=== PATIENT | female | born 1965 | race Caucasian/White ===

== ENCOUNTER 2019-08-24 22:52 | Emergency (ER) | payer MEDICARE ==
[~2019-08-24] VITALS: Ht 165 cm; Wt 73.5 kg
[~2019-08-24 22:52] MED LIST: ALPR1T PO
--- OUTSIDE RECORDS SUMMARY | 2019-08-24 22:57 | XMS REPORT | Continuity of Care Document ---
Author Organization Unknown Address Unknown Phone Unavailable Allergies Active Description Code Type Severity Reaction Onset Reported/Identified Relationship to Patient Clinical Status Yes CIPROFLOXACIN 44391 DRUG INGREDI N/A N/A 11/26/2018 Yes CODEINE 21735 DRUG INGREDI N/A N/A 11/26/2018 Yes CORTISONE 11256 DRUG INGREDI N/A N/A 11/26/2018 Yes DIPHENHYDRAMINE 18187 DRUG INGRED I N/A N/A 11/26/2018 Yes SULFA ANTIBIOTICS 34 Drug Class N/A N/A 11/26/2018 Yes TIOTROPIUM BROMIDE MONOHYDRATE 30187 DRUG N/A N/A 11/26/2018 Medications There is no data. Problems Date Dx Coded Attending Type Code Diagnosis Diagnosed By 11/26/2018 Malika AL R07.9 Chest pain, unspecified 11/26/2018 Malika AL I20.0 Unstable angina 11/26/2018 Malika AL W R06.09 Other forms of dyspnea 11/26/2018 Malika AL W R06.09 Other forms of dyspnea 11/26/2018 Malika AL W R00.2 Palpitations 11/26/2018 Malika AL W R00.2 Palpitations 11/26/2018 Malika AL W I10 Essential (primary) hypertension 11/26/2018 Malika AL W I10 Essential (primary) hypertension 11/26/2018 Malika AL W E78.00 Pure hypercholesterolemia, unspecified 11/26/2018 Malika AL W E78.00 Pure hypercholesterolemia, unspecified 11/26/2018 Malika AL J45.40 Moderate persistent asthma, uncomplicated 11/26/2018 Malika AL J44.9 Chronic obstructive pulmonary disease, unspecified 11/26/2018 Malika AL J44.9 Chronic obstructive pulmonary disease, unspecified 11/26/2018 Malika AL W Z82.49 Family history of ischemic heart disease and other diseases of the circulatory system 12/25/2018 Man BlankSandee Weiss E78. 00 PURE HYPERCHOLESTEROLEMIA, UNSPECIFIED 12/25/2018 Man BlankSandee Weiss F17. 210 NICOTINE DEPENDENCE, CIGARETTES, UNCOMPLICATED 12/25/2018 Abhay Man NamSandee Weiss I10 ESSENTIAL (PRIMARY) HYPERTENSION 12/25/2018 Abhay Emeterio. W J44. 9 CHRONIC OBSTRUCTIVE PULMONARY DISEASE, UNSPECIFIED 12/25/2018 Man Blank Carol Weiss R07. 9 CHEST PAIN, UNSPECIFIED 12/25/2018 Man Blank Carol Weiss Z79. 899 OTHER MCC (CURRENT) DRUG THERAPY 12/25/2018 Man Blank Carol Weiss E78. 00 PURE HYPERCHOLESTEROLEMIA, UNSPECIFIED 12/25/2018 Man BlankSandee Weiss F17. 210 NICOTINE DEPENDENCE, CIGARETTES, UNCOMPLICATED 12/25/2018 AbhayMan I10 ESSENTIAL (PRIMARY) HYPERTENSION 12/25/2018 Abhay Emeterio. W J44. 9 CHRONIC OBSTRUCTIVE PULMONARY DISEASE, UNSPECIFIED 12/25/2018 Man Blank Carol Weiss R07. 9 CHEST PAIN, UNSPECIFIED 12/25/2018 Man Blank Carol Weiss Z79. 899 OTHER M[facility] (CURRENT) DRUG THERAPY 12/25/2018 Abhay Man NamSandee Weiss Z82. 49 FAMILY HX OF ISCHEM HEART DIS AND OTH DIS OF THE C Procedures There is no data. Results Test Result Range CBC Without Differential - 12/23/18 13:1 0 HEMOGLOBIN 12.9 gm/dL 12.0-15.0 WBC 9.2 thou/uL 4.0-11.0 RBC 4.05 mil/uL 4.20-5.00 MCV 91.2 fL 80.0-100.0 MCH 31.7 pg 26.0-34.0 MCHC 34.8 g/dL 28.0-37.0 RDW 13.9 % 10.5-14.5 HEMATOCRIT 37.0 % 37.0-47.0 PLATELET COUNT* 225 thou/uL 150-400 MPV 9.9 fl. 7.2-11.1 BASIC METABOLIC PANEL - 12/23/18 13:10 SODIUM 139 mmol/L 136-145 POTASSIUM 3.9 mmol/L 3.5-5.1 CHLORIDE 104 mmol/L 98-107 CO2 28 mmol/L 21-32 ANION GAP 7 mmol/L 7-16 BUN 5 mg/dL 7-18 CREATININE 0.9 mg/dL 0.6-1.3 GLUCOSE 121 mg/dL 70-99 CALCIUM 9.6 mg/dL 8.5-10.1 Est Glomerular Filtration Rate 65 SeeTable NRG LIPID PROFILE - 12/23/18 13:10 SERUM ASSESSMENT Clear NRG CHOLESTEROL 189 mg/dL <200 TRIGLYCERIDE 178 mg/dL <150 HDL CHOLESTEROL 41 mg/dL >40 LDL CHOLESTEROL 113 mg/dL <100 VLDL 36 mg/dL <40 TC:HDL 4.6 Ratio Not establshd PROTIME* - 12/23/18 13:10 PROTIME 10.3 Seconds 9.20-11.50 INR 1.0 NRG APTT - 12/23/18 13:10 APTT 27.6 Seconds 25.0-31.3 Encounters ACCT No. Visit Date/Time Discharge Status Pt. Type Provider Facility Loc./Unit Complaint [id number] 01/20/2019 09:40:47 2018 10:22:54 DIS Outpatient [facility] CARD Chest Pain [id number] 12/22/2018 10:01:38 2018 12:03:02 DIS Outpatient [facility] CARD Chest Pain [id number] 12/22/2018 10:55:26 2018 10:55:42 DIS Outpatient [facility] CARD [id number] 12/23/2018 12:19:00 12/23/2018 23:5 9:59 [facility]ABNL STRE SS TEST [id number] 08/24/2019 14:00:[address] Out[address] [facility] RAD MASS OF LEFT LUNG
--- NOTE | 2019-08-24 23:24 | ED Psychosocial ---
General Chief Complaint: Psych/Social Disorder Stated Complaint: PANIC ATTACK Nursing Triage Note: Pt ambulates to [facility] with c/o panic attack since 1400 today, ever since they got a CT scan d/t being claustrophobic. Pt has Hx of anxiety and reports having xanax they take prn and states they are out of prescription so wasn't able to get anxiety under control. Pt does not appear in distress on arrival. Source: patient Exam Limitations: no limitations History of Present Illness Date Seen by Provider: Aug 24, 2019 Time Seen by Provider: 23:21 Initial Comments To ER with a panic attack since 2 PM today ever since having a CT scan. She relates this anxiety to claustrophobia. She was formerly on Xanax 1 mg once or twice a day but her primary care provider quit prescribing them. Timing/Duration: constant Severity: moderate Associated Symptoms: anxiety Allergies and Home Medications Allergies Coded Allergies: No Known Drug Allergies (Unverified , 08/24/19) Patient Home Medication List Home Medication List Reviewed: Yes Review of Systems Constitutional: see HPI EENTM: see HPI Respiratory: no symptoms reported Cardiovascular: no symptoms reported Genitourinary: no symptoms reported Musculoskeletal: see HPI Skin: no symptoms reported Psychiatric/Neurological: See HPI, Anxiety Past Dnsssti-Gyowmp-Shwjfm Hx Patient Social History Alcohol Use: Occasionally Uses Recreational Drug Use: No Smoking Status: Current Everyday Smoker Type Used: Cigarettes 2nd Hand Smoke Exposure: Yes Recent Foreign Travel: No Contact w/Someone Who Travel: No Recent Infectious Disease Expo: No Recent Hopitalizations: No (cardiac cath 12/2018- no intervention) Seasonal Allergies Seasonal Allergies: Yes Past Medical History Surgeries: Yes (tumor removal right side 2005, stretched esophagus in 2018) Gallbladder Respiratory: Yes Asthma, COPD Cardiac: Yes High Cholesterol, Hypertension Neurological: No Genitourinary: No Gastrointestinal: Yes Gastroesophageal Reflux, Hiatal Hernia Musculoskeletal: No Endocrine: No HEENT: No Cancer: No Psychosocial: Yes Personality Disorder Integumentary: No Blood Disorders: No Physical Exam Vital Signs - First Documented 08/24/19 23:05 Temp 36.5 Pulse 72 Resp 20 B/P (MAP) 148/82 (104) Pulse Ox 97 O2 Delivery Room Air Capillary Refill : Less Than 3 Seconds Height, Weight, BMI Height: '" Weight: lbs. oz. kg; 26.00 BMI Method: General Appearance: WD/WN, no apparent distress HEENT: PERRL/EOMI, normal ENT inspection Respiratory: no respiratory distress, no accessory muscle use Gastrointestinal: normal bowel sounds, soft Extremities: normal range of motion, non-tender Neurologic/Psychiatric: alert, normal mood/affect, oriented x 3 Appearance/Memory: appropriate appearance, appropriate insight Behavior/Eye Contact: cooperative, good eye contact Thoughts/Hallucinations: normal thought pattern, no apparent hallucination Skin: normal color, warm/dry Progress/Results/Core Measures Results/Orders My Orders Orders - JITENDRA MOREL APRN Clonazepam Tablet (Klonopin Tablet) (08/24/19 23:30) Vital Signs/I&O 08/24/19 23:05 Temp 36.5 Pulse 72 Resp 20 B/P (MAP) 148/82 (104) Pulse Ox 97 O2 Delivery Room Air Blood Pressure Mean: 104 Departure Impression Primary Impression: Anxiety Additional Impression: Benzodiazepine withdrawal Disposition: 01 HOME, SELF-CARE Condition: Stable Departure-Patient Inst. Decision time for Depature: 23:23 Referrals: JOSEPH HUBBARD (PCP/Family) Primary Care Physician Patient Instructions: Panic Disorder (DC) Add. Discharge Instructions: 1. Return to ER for any concerns 2. Follow-up with mental health as scheduled. All discharge instructions reviewed with patient and/or family. Voiced understanding. JITENDRA MOREL APRN Aug 24, 2019 23:23
[2019-08-24] MEDS ORDERED: clonazePAM 1 MG (KlonoPIN) TAB PO ONE (23:30)
[2019-08-25 00:49] VITALS: BP 145/83
== END 2019-08-25 00:47 | disposition home or self-care (01) ==
LOC: EDUNIT# 22:52 → ER 22:53 → MERGE 22:53 → ER 08-25 00:47
DX: F41.0 Panic disorder [episodic paroxysmal anxiety] (principal); F13.239 Sedative, hypnotic or anxiolytic dependence with withdrawal, unspecified; F17.210 Nicotine dependence, cigarettes, uncomplicated; Z95.9 Presence of cardiac and vascular implant and graft, unspecified
CPT/HCPCS: 99283

== ENCOUNTER → 2020-05-13 | Outpatient (CLI) | payer MEDICARE | LOC: RAD 09:49 | PROVIDERS: ATTEND Physician Assistant | DX: Z12.31 Encounter for screening mammogram for malignant neoplasm of breast (principal) | CPT/HCPCS: 77063; 77067 ==

== ENCOUNTER → 2020-07-05 | Outpatient (CLI) | payer MEDICARE ==
--- NOTE | 2020-07-05 12:40 | Diagnostic Imaging Report ---
INDICATION: Postmenopausal state. COMPARISON: None available FINDINGS: AP Spine L1-L4: [BMD (g/cm2): 1.249] [T-Score: 0.4] [Z-Score: 0.7] [BMD Previous: NA] [BMD % Change: NA] LT Hip Neck: [BMD (g/cm2): 1.199] [T-Score: 1.2] [Z-Score: 1.8] LT Hip Total: [BMD (g/cm2):1.253] [T-Score:1.9] [Z-Score: 2.2] [BMD Previous: NA] [BMD % Change: NA] RT Hip Neck: [BMD (g/cm2):1.173] [T-Score:1.0] [Z-Score:1.6] RT Hip Total: [BMD (g/cm2):1.206] [T-score:1.6] [Z-Score:1.9] [BMD Previous:NA] [BMD % Change:NA] *Indicates significant change from prior examination based on 95% confidence level. World Health Organization criteria for BMD interpretation classify patients as Normal (T-score at or above -1.0), Osteopenic (T-score between -1.0 and -2.5) or Osteoporotic (T-score at or below -2.5). LIMITATIONS AND MODIFICATION: None. IMPRESSION: 1. Normal bone mineral density. 2. Baseline examination. 3. See below National Osteoporosis Foundation guidelines on when to potentially initiate pharmacologic therapy. Based on the National Osteoporosis Foundation Guidelines, pharmacologic treatment should be initiated in any of the following, unless clinical conditions suggest otherwise: * Any patient with prior fragility fracture of the hip or vertebrae. A spine fracture indicates 5X risk for subsequent spine fracture and 2X risk for subsequent hip fracture. * Osteoporosis (T-score <-2.5). * Postmenopausal women and men age 50 and older with low bone mass/osteopenia (T-score between -1.0 and -2.5) by DXA and 10-year major osteoporotic fracture greater than 20% or a 10-year probability of hip fracture greater than 3%. These fracture risks are supplied above in the FRAX score, if applicable. * Clinician judgement and/or patient preferences may indicate treatment for people with 10-year fracture probabilities above or below these levels. Dictated by: Dictated on workstation # [id number]
== END ==
LOC: RAD 12:30
PROVIDERS: ATTEND Physician Assistant
DX: Z91.89 Other specified personal risk factors, not elsewhere classified (principal); Z78.0 Asymptomatic menopausal state
CPT/HCPCS: 77080

== ENCOUNTER → 2021-02-06 | Outpatient (CLI) | payer MEDICARE ==
--- NOTE | 2021-02-06 10:13 | Diagnostic Imaging Report ---
CLINICAL INDICATION: Patient with possible thyroid mass. EXAM: Ultrasound of the thyroid gland. COMPARISONS: None. FINDINGS: THYROID NODULES: There is a subtle 1.5 cm x 1.0 cm x 0.9 cm heterogeneous hypo-/isoechoic nodule involving the midportion left thyroid lobe which demonstrates peripheral and some central Doppler flow. This nodule is wider than it is tall. There are no central calcifications seen. THYROID GLAND: Besides the thyroid nodule, the thyroid gland has normal size, shape and echogenicity. The right lobe measures 4.3 cm x 1.5 cm x 1.3 cm and the left lobe measures 4.3 cm x 1.9 cm x 1.5 cm in their three dimensions. ISTHMUS: The isthmus is unremarkable and measures 1 mm in thickness. IMPRESSION: 1: There is a 1.5 cm subtle slightly heterogeneous nodule involving the mid left thyroid lobe. TI-RADS 3. 2: Otherwise, the remainder of the thyroid gland is unremarkable. Dictated by: Dictated on workstation # [id number]
== END ==
LOC: RAD 09:00
PROVIDERS: ATTEND Otolaryngology Otolaryngology/Facial Plastic Surgery
DX: E04.1 Nontoxic single thyroid nodule (principal)
CPT/HCPCS: 76536

== ENCOUNTER → 2021-02-15 | Outpatient (CLI) | payer MEDICARE ==
[~2021-02-15] VITALS: Ht 160 cm; Wt 74.0 kg
[~2021-02-15] MED LIST changes: +LIDOCAINE 1% INJ 20 ML 20 ML VIAL INJ ONE
--- NOTE | 2021-02-15 09:48 | Diagnostic Imaging Report ---
INDICATION: Left thyroid nodule. Patient presents for ultrasound-guided fine-needle aspiration. Patient brought to the procedure room, placed on the table in the supine position. Ultrasound imaging of the left neck was performed evaluating appropriate entry site. Left neck was then prepped and draped in usual sterile fashion. Small amount of 1% lidocaine was utilized for local anesthesia. Total of 4 passes were made into the left lobe of the thyroid utilizing 25-gauge needles and final aspiration technique. Single pass was made with a Rotex needle. Hemostasis was obtained using manual compression. Patient tolerated procedure well and left the department in stable condition. IMPRESSION: Successful ultrasound-guided fine-needle aspiration Rotex biopsy left lobe thyroid nodule. Pathology results are currently pending. Dictated by: Dictated on workstation # [id number]
== END ==
LOC: RAD 08:30
PROVIDERS: ATTEND Otolaryngology Otolaryngology/Facial Plastic Surgery
DX: E04.1 Nontoxic single thyroid nodule (principal)
CPT/HCPCS: 10005

== ENCOUNTER 2022-03-18 21:55 | Emergency (ER) | payer MEDICARE ==
[~2022-03-18] VITALS: Ht 160 cm; Wt 71.0 kg
[~2022-03-18 21:55] MED LIST changes: -LIDOCAINE 1% INJ 20 ML 20 ML VIAL INJ ONE
[2022-03-18 22:06] VITALS: BP 165/78
--- NOTE | 2022-03-18 22:22 | ED General ---
General Chief Complaint: General Problems/Pain Stated Complaint: POSS ALLERGIC REACTION TO NEW MEDS Source of Information: Patient Exam Limitations: No Limitations History of Present Illness Date Seen by Provider: Mar 18, 2022 Time Seen by Provider: 22:09 Initial Comments 57-year-old female presents with reports that she thinks she is having an allergic reaction to her medication. States she was started on Bactrim and Pyridium last for UTI. States she drank 2 Brewer and Cokes tonight, then read the package insert on the prescriptions which told her she was not supposed to drink with the medications. Patient states that she began to not feel well after this, she reports scratching in her throat and sweating. States she was also sweating yesterday. Denies itching, denies difficulty swallowing, denies throat tightening, denies lip or tongue swelling, denies trouble breathing. Denies abdominal pain/nausea vomiting, denies chest pain. Patient states that her blood pressure was also elevated, so she took her night medications and a hydroxyzine to help with her anxiety. Patient then realized that she actually took 2 hydroxyzines. Allergies and Home Medications Allergies Coded Allergies: diphenhydramine HCl (Verified Allergy, Intermediate, LIPS TURN BLUE, 04/17/11) varenicline tartrate (Verified Allergy, Mild, HIVES, 04/17/11) codeine (Verified Allergy, Unknown, 12/25/05) etodolac (Verified Allergy, Unknown, 12/25/05) ciprofloxacin (Verified Adverse Reaction, Unknown, 08/28/19) diphenhydramine (Verified Adverse Reaction, Unknown, 08/28/19) Uncoded Allergies: SYNTHETIC CODEINE (Allergy, Mild, RASH, 04/17/11) "ANTIHISTAMINE" (Allergy, Unknown, 12/25/05) Patient Home Medication List Home Medication List Reviewed: Yes Alprazolam (Xanax) 1 Mg Tablet, 1 TAB PO TID PRN, (Reported) Entered as Reported by: ERNESTINA SEARS on 04/17/11 5909 Review of Systems Review of Systems Constitutional: see HPI Past Kuxeflc-Rksnqy-Srmwoq Hx Patient Social History Tobacco Use?: No Use of E-Cig and/or Vaping dev: No Substance use?: No Alcohol Use?: No Pt feels they are or have been: No Seasonal Allergies Seasonal Allergies: Yes Past Medical History Surgeries: Yes (tumor removal right side 2006, stretched esophagus in 2018) Gallbladder Respiratory: Yes Asthma, COPD Cardiac: Yes High Cholesterol, Hypertension Neurological: No Genitourinary: No Gastrointestinal: Yes Gastroesophageal Reflux, Hiatal Hernia Musculoskeletal: No Endocrine: No HEENT: No Cancer: No Psychosocial: Yes Personality Disorder Integumentary: No Blood Disorders: No Physical Exam Vital Signs Vital Signs - First Documented 03/18/22 22:06 Temp 35.8 Pulse 87 Resp 20 B/P (MAP) 165/78 (107) Pulse Ox 97 O2 Delivery Room Air Capillary Refill : Height, Weight, BMI Height: 5'6.00" Weight: 132lbs. oz. 59.669631ii; 28.90 BMI Method: General Appearance: WD/WN, Anxious HEENT: Normal ENT Inspection, Pharynx Normal, Moist Mucous Membranes Neck: Normal Inspection, Supple Respiratory: Lungs Clear, Normal Breath Sounds, No Accessory Muscle Use, No Respiratory Distress Cardiovascular: No Edema, No Gallop, No JVD, No Murmur Extremity: Normal Inspection, Normal Range of Motion Neurologic/Psychiatric: Alert, Oriented x3, Other (Anxious) Skin: Normal Color, Warm/Dry Progress/Results/Core Measures Suspected Sepsis SIRS Temperature: Pulse: Respiratory Rate: Blood Pressure / Mean: Results/Orders My Orders Vital Signs/I&O 03/18/22 22:06 Temp 35.8 Pulse 87 Resp 20 B/P (MAP) 165/78 (107) Pulse Ox 97 O2 Delivery Room Air Capillary Refill : Progress Note : Time: 22:23 Progress Note Patient seen and evaluated, appears anxious, sitting in recliner. Based on exam and symptoms, patient is likely having anxiety or panic attack after reading that she was not supposed to drink with her medications. Do not think that this is an allergic reaction due to no itching, no difficulty swallowing, no swelling in the mouth, tongue or throat, and no difficulty breathing. Was going to give patient a second hydroxyzine, because she first thought that she only took 1 hydroxyzine. Patient then remembered that she had taken 2 hydroxyzines prior to coming to the ER. Patient given discharge instructions and return precautions. Departure Impression Primary Impression: Anxiety Disposition: 01 HOME, SELF-CARE Condition: Stable Departure-Patient Inst. Decision time for Depature: 22:23 Referrals: [facility] (PCP/Family) Primary Care Physician Patient Instructions: Allergic Reaction ED Add. Discharge Instructions: Return if you have swelling of your throat, difficulty swallowing, difficulty breathing, rash all over your body, or any other new, concerning, or worsening symptoms. Follow-up with your primary care provider. All discharge instructions reviewed with patient and/or family. Voiced understanding. HUY DENG APRN Mar 18, 2022 22:22
[2022-03-18] MEDS ORDERED: hydrOXYzine (VISTARIL/ATARAX) 25 MG capsule/tablet PO ONE (22:30)
== END 2022-03-18 22:27 | disposition home or self-care (01) ==
LOC: EDUNIT# 21:55 → ER 21:58
DX: F41.9 Anxiety disorder, unspecified (principal)
CPT/HCPCS: 99281

== ENCOUNTER 2022-04-13 20:08 | Emergency (ER) | payer MEDICARE ==
[~2022-04-13] VITALS: Ht 160 cm; Wt 71.2 kg
[2022-04-13] MEDS ORDERED: PANT40TA52 (20:21)
[2022-04-13] MEDS ORDERED: LOSA50TA63 (20:21)
[2022-04-13] MEDS ORDERED: METO-333 (20:21)
[2022-04-13] MEDS ORDERED: FLUO20CA48 (20:21)
[2022-04-13] MEDS ORDERED: MONT-40 (20:21)
--- NOTE | 2022-04-13 20:47 | Diagnostic Imaging Report ---
EXAM: Foot, right, 3 view INDICATION: Right foot pain. Trauma. COMPARISON: None. FINDINGS/ IMPRESSION: 1. Mildly displaced fractures through the base of the right 3rd and 4th metatarsals. 2. There may also be a fracture through the base of the right 2nd metatarsal. This is seen only on the AP view and may be artifactual. CT would be helpful for further evaluation. 3. No other finding suspicious for fracture. Dictated by: Dictated on workstation # [id number]
--- NOTE | 2022-04-13 21:39 | ED Lower Extremity ---
General Chief Complaint: Lower Extremity Stated Complaint: RT FOOT INJURY Nursing Triage Note: right mid medial foot pain after tripping approx. 1900. Source: patient, family Exam Limitations: no limitations History of Present Illness Date Seen by Provider: Apr 13, 2022 Time Seen by Provider: 21:20 Initial Comments Patient is a 57-year-old female who presents to the emergency department with a chief complaint of right foot pain, bruising and swelling. She was carrying her daughter granddaughter when she tripped over a curb and fell onto her right foot. She felt and heard a pop. She has been unable to bear weight since the time of the fall. She denies any complaints of injury to her knee, hip. No other areas of injury reported. She did not hit her head or have a loss of consciousness. She has not taken anything for the pain. She states her toes feel a little "numb". She points to the midportion of the dorsum of her foot as the source of her pain. Has never injured this foot in the past. She did have an episode of nausea and vomiting earlier due to the pain. All other review of systems reviewed and negative except as stated Onset: just prior to arrival Severity: moderate Pain/Injury Location: right foot Method of Injury: fell Modifying Factors: Improves With Immobilization; Worse With Movement Allergies and Home Medications Allergies Coded Allergies: diphenhydramine HCl (Verified Allergy, Intermediate, LIPS TURN BLUE, 04/17/11) varenicline tartrate (Verified Allergy, Mild, HIVES, 04/17/11) codeine (Verified Allergy, Unknown, 12/25/05) etodolac (Verified Allergy, Unknown, 12/25/05) ciprofloxacin (Verified Adverse Reaction, Unknown, 08/28/19) diphenhydramine (Verified Adverse Reaction, Unknown, 08/28/19) Uncoded Allergies: SYNTHETIC CODEINE (Allergy, Mild, RASH, 04/17/11) "ANTIHISTAMINE" (Allergy, Unknown, 12/25/05) Patient Home Medication List Home Medication List Reviewed: Yes Alprazolam (Xanax) 1 Mg Tablet, 1 TAB PO TID PRN, (Reported) Entered as Reported by: ERNESTINA SEARS on 04/17/111740 Fluoxetine HCl (Fluoxetine HCl) 20 Mg Capsule, (Reported) Entered as Reported by: TRINA REID on 04/13/222020 Last Action: New Order Losartan Potassium (Losartan Potassium) 50 Mg Tablet, (Reported) Entered as Reported by: TRINA REID on 04/13/222020 Last Action: New Order Metoprolol Tartrate (Metoprolol Tartrate) 25 Mg Tablet, (Reported) Entered as Reported by: TRINA REID on 04/13/222020 Last Action: New Order Montelukast Sodium (Montelukast Sodium) 10 Mg Tablet, (Reported) Entered as Reported by: TRINA REID on 04/13/222020 Last Action: New Order Pantoprazole Sodium (Pantoprazole Sodium) 40 Mg Tablet., (Reported) Entered as Reported by: TRINA REID on 04/13/222020 Last Action: New Order Review of Systems Constitutional: see HPI EENTM: no symptoms reported Respiratory: cough (occasional) Cardiovascular: no symptoms reported Gastrointestinal: nausea, vomiting Genitourinary: no symptoms reported Musculoskeletal: joint pain (right foot) Skin: no symptoms reported All Other Systems Reviewed Negative Unless Noted: Yes Past Sdhmjag-Xzditv-Ccgybu Hx Patient Social History Tobacco Use?: Yes Substance use?: No Alcohol Use?: Yes Alcohol Frequency: Once in a while Pt feels they are or have been: No Immunizations Up To Date First/Initial COVID19 Vaccinat: x2 Seasonal Allergies Seasonal Allergies: Yes Past Medical History Surgery/Hospitalization HX: left shoulder, cholecystectomy, heart cath no intervention, htn, gerd, copd Surgeries: Yes (tumor removal right side 2005, stretched esophagus in 2018) Gallbladder Respiratory: Yes Asthma, COPD Cardiac: Yes High Cholesterol, Hypertension Neurological: No Genitourinary: No Gastrointestinal: Yes Gastroesophageal Reflux, Hiatal Hernia Musculoskeletal: No Endocrine: No HEENT: No Cancer: No Psychosocial: Yes Personality Disorder Integumentary: No Blood Disorders: No Physical Exam Vital Signs Vital Signs - First Documented 04/13/22 20:13 Temp 36.6 Pulse 69 Resp 18 B/P (MAP) 154/64 (94) Pulse Ox 95 O2 Delivery Room Air Capillary Refill : Less Than 3 Seconds Height, Weight, BMI Height: 5'6.00" Weight: 132lbs. oz. [id number]; 27.00 BMI Method: General Appearance: WD/WN, no apparent distress HEENT: PERRL/EOMI Cardiovascular: regular rate, rhythm Respiratory: no respiratory distress, no accessory muscle use Hips: bilateral hip non-tender, bilateral hip normal inspection, bilateral hip normal range of motion, bilateral hip no evidence of injury Legs: bilateral leg non-tender, bilateral leg normal inspection, bilateral leg normal range of motion, bilateral leg no evidence of injury Knees: bilateral knee non-tender, bilateral knee normal inspection, bilateral knee normal range of motion, bilateral knee no evidence of injury Ankles: bilateral ankle non-tender, bilateral ankle normal inspection, bilateral ankle normal range of motion, bilateral ankle no evidence of injury Feet: right foot ecchymosis, right foot limited range of motion, right foot pain, right foot soft tissue tenderness, right foot swelling Neurologic/Tendon: normal sensation, normal motor functions, normal tendon functions, sensory deficit (toes feel "numb-sanjiv") Neurologic/Psychiatric: alert, normal mood/affect, oriented x 3 Skin: normal color, warm/dry, ecchymosis (dorsum right mid foot; tenderness to palpation) Progress/Results/Core Measures Results/Orders My Orders Orders - YOGI MONTOYA MD Foot, Right, 3 View (04/13/22 20:26) Ondansetron Oral Dissolve Tab (Zofran (04/13/22 21:45) Rx-Ondansetron Po (Rx-Zofran Po) (04/13/22 22:49) Vital Signs/I&O 04/13/22 20:13 Temp 36.6 Pulse 69 Resp 18 B/P (MAP) 154/64 (94) Pulse Ox 95 O2 Delivery Room Air Blood Pressure Mean: 94 Progress Progress Note : Time: 23:13 Progress Note Patient seen and evaluated by me, 57-year-old with right foot pain status post fall. Evaluation today includes physical exam and x-rays of the right foot. Exam is pertinent for swelling over the dorsum of the right foot with ecchymosis and tenderness to palpation. Neurovascularly intact with brisk 2+ dorsalis pedis pulse and posterior tibial pulse. Right ankle joint is stable. No tenderness along the tibial surface. Knee is normal. Differential diagnosis based on history and physical fracture of the midfoot, foot sprain. X-rays are reviewed and show mildly displaced fractures of the proximal third and fourth metatarsal as well as possible fracture of the second metatarsal. Patient is placed in a short leg posterior splint and given crutches. She is educated on nonweightbearing to the right lower extremity. She is referred to orthopedics, Dr. Alvares. She declines prescription pain medication and states that she will take naproxen. Instructions on naproxen dosing is given. I also gave her Zofran here in the department as well as a take-home pack and sent a prescription to her pharmacy. Patient is educated to keep the right foot elevated, ice packs and the splint in place. She verbalized understanding. All questions are sought and answered Departure Impression Primary Impression: Fracture of metatarsal of right foot, closed Qualified Codes: S92.331A - Displaced fracture of third metatarsal bone, right foot, initial encounter for closed fracture Additional Impressions: Metatarsal fracture Qualified Codes: S92.341A - Displaced fracture of fourth metatarsal bone, right foot, initial encounter for closed fracture Metatarsal bone fracture Qualified Codes: S92.324A - Nondisplaced fracture of second metatarsal bone, right foot, initial encounter for closed fracture Disposition: HOME, SELF-CARE Condition: Stable Departure-Patient Inst. Decision time for Depature: 21:46 Referrals: [facility] [place] (PCP/Family) Primary Care Physician RAN ALVARES MD Patient Instructions: Foot Fracture ED Add. Discharge Instructions: You need to keep the right All discharge instructions reviewed with patient and/or family. Voiced understanding. Scripts Ondansetron (Ondansetron Odt) 4 Mg Tab.rapdis 4 MG SL Q8H PRN for NAUSEA/VOMITING, #10 TAB Prov: YOGI MONTOYA MD 04/13/22 Copy Copies To 1: RAN ALVARES MD, KATHRYN M MD Apr 13, 2022 21:39
[2022-04-13] MEDS ORDERED: ONDANSETRON 4 MG (ZOFRAN) ORAL DISSOLVE TAB PO ONE (21:45)
[2022-04-13 22:45] VITALS: BP 129/79
[2022-04-13] MEDS ORDERED: RX-ONDANSETRON 4 MG ODT (ZOFRAN) PPK #4 ONE (22:49)
[2022-04-13] MEDS ORDERED: ONDA4TAB11 SL (23:15)
== END 2022-04-13 22:45 | disposition home or self-care (01) ==
LOC: EDUNIT# 20:08 → ER 20:10
DX: S92.331A Displaced fracture of third metatarsal bone, right foot, initial encounter for closed fracture (principal); S92.341A Displaced fracture of fourth metatarsal bone, right foot, initial encounter for closed fracture; S92.324A Nondisplaced fracture of second metatarsal bone, right foot, initial encounter for closed fracture; I10 Essential (primary) hypertension; W01.0XXA Fall on same level from slipping, tripping and stumbling without subsequent striking against object, initial encounter
CPT/HCPCS: 29515; 73630

== ENCOUNTER → 2022-04-18 | Outpatient (CLI) | payer MEDICARE ==
[~2022-04-18] MED LIST changes: +FLUO20CA48; +LOSA50TA63; +METO-333; +MONT-40; +ONDA4TAB11 SL; +PANT40TA52
== END ==
LOC: ORTHO 11:04
PROVIDERS: ATTEND Orthopaedic Surgery
DX: S92.324A Nondisplaced fracture of second metatarsal bone, right foot, initial encounter for closed fracture (principal); S92.334A Nondisplaced fracture of third metatarsal bone, right foot, initial encounter for closed fracture; S92.344A Nondisplaced fracture of fourth metatarsal bone, right foot, initial encounter for closed fracture; I10 Essential (primary) hypertension; X58.XXXA Exposure to other specified factors, initial encounter
CPT/HCPCS: 99203

== ENCOUNTER → 2022-05-17 | Outpatient (CLI) | payer MEDICARE ==
--- NOTE | 2022-05-17 13:19 | Diagnostic Imaging Report ---
EXAMINATION: Right foot radiographs, 3 views. COMPARISON: April 13, 2022. HISTORY: 57-year-old female, right foot pain. FINDINGS: There is mild degenerative type enthesopathy at the Achilles tendon insertion. There most likely is essentially nondisplaced fracture of the base of the second metatarsal. Further evaluation with dedicated CT right foot without contrast is recommended. There is no abnormal alignment of the metatarsal bases relative to their cuneiform and cuboid articulations. IMPRESSION: 1. Concern for a fracture of the second metatarsal base which can be seen with a Lisfranc type injury. Further evaluation with CT right foot without contrast is recommended. Dictated by: Dictated on workstation # [id number]
== END ==
LOC: ORTHO 08:59
PROVIDERS: ATTEND Orthopaedic Surgery
DX: S92.321A Displaced fracture of second metatarsal bone, right foot, initial encounter for closed fracture (principal); X58.XXXA Exposure to other specified factors, initial encounter
CPT/HCPCS: 73630; 99213

== ENCOUNTER → 2022-06-28 | Outpatient (CLI) | payer MEDICARE ==
--- NOTE | 2022-06-28 14:44 | Diagnostic Imaging Report ---
INDICATION: Fracture, follow-up. TECHNIQUE: 3 views of the right foot CORRELATION STUDY: 05/17/2022 FINDINGS: Previous imaging raise concern for fracture base of the 2nd metatarsal. There is what appears to be slight irregularity at this area may be reflective of a healed or incompletely healed fracture. No new bony abnormality. Alignment overall unchanged and anatomic. Degenerative changes through the tarsometatarsal articulations. Remaining osseous structures otherwise intact. Soft tissues appearing unremarkable. IMPRESSION: 1. Likely healing changes at the base of the 2nd metatarsal. If further assessment desired, CT imaging would be recommended. Dictated by: Dictated on workstation # [id number]
== END ==
LOC: ORTHO 08:37
PROVIDERS: ATTEND Orthopaedic Surgery
DX: S92.324D Nondisplaced fracture of second metatarsal bone, right foot, subsequent encounter for fracture with routine healing (principal); S92.334D Nondisplaced fracture of third metatarsal bone, right foot, subsequent encounter for fracture with routine healing; S92.344D Nondisplaced fracture of fourth metatarsal bone, right foot, subsequent encounter for fracture with routine healing; I10 Essential (primary) hypertension; X58.XXXD Exposure to other specified factors, subsequent encounter
CPT/HCPCS: 73630; 99213

== ENCOUNTER 2022-12-13 22:29 | Emergency (ER) | payer MEDICARE ==
[~2022-12-13] VITALS: Ht 160 cm; Wt 72.6 kg
--- NOTE | 2022-12-13 22:48 | ED GI ---
General Chief Complaint: Abdominal/GI Problems Stated Complaint: BLEACH EXPOSURE Nursing Triage Note: PT TO RM [facility] VIA [facility] FROM HOME W C/O N/V/D SX SHE WAS EXPOSED TO BLEACH WHILE CLEANING BATHROOM APPROX 3 HRS AGO. EMS ADMIN 4MG ZOFRAN IVP, PT REPORTS ZOFRAN RESOLVED N/V/D. EMS INITIATED 22G LEFT FA SL PATENT UPON ARRIVAL TO ED W 1L NS INFUSING. Source of Information: Patient Exam Limitations: No Limitations History of Present Illness Date Seen by Provider: Dec 13, 2022 Time Seen by Provider: 22:38 Initial Comments Patient is a 57-year-old female who presents to the emergency room by ambulance chief complaint this evening nausea, vomiting and diarrhea. Patient states ap proximately 3 hours prior to arrival she was cleaning her house in preparation for her granddaughters to come over tomorrow. She wiped her bathroom down with a bleach solution and then went and sat on her love seat. She had sudden onset of the urge to vomit and then continue to do so for approximately an hour to 2 hours. She states she became very sweaty and weak. She also had profuse explosive diarrhea. At no point did she have any chest pain or shortness of breath. No abdominal pain with this. Denies black or bloody stool or blood in her emesis. She states that she does have history of hiatal hernia. She has had previous cholecystectomy. She has had no fevers, chills, illness symptoms in recent days. She did receive IV Zofran prior to arrival. Her symptoms are controlled on arrival. Patient states she ate at home today - some taquitos and eggrolls. No recent sick contacts. Patient believes symptoms are related to bleach exposure as she is very sensitive to smells. Timing/Duration: 1-3 Hours Severity/Quality: Severe Associated Symptoms: Nausea/Vomiting, Other (diarrhea) Allergies and Home Medications Allergies Coded Allergies: diphenhydramine HCl (Verified Allergy, Intermediate, LIPS TURN BLUE, 04/17/11) varenicline tartrate (Verified Allergy, Mild, HIVES, 04/17/11) codeine (Verified Allergy, Unknown, 12/25/05) etodolac (Verified Allergy, Unknown, 12/25/05) ciprofloxacin (Verified Adverse Reaction, Unknown, 08/28/19) diphenhydramine (Verified Adverse Reaction, Unknown, 08/28/19) Uncoded Allergies: SYNTHETIC CODEINE (Allergy, Mild, RASH, 04/17/11) "ANTIHISTAMINE" (Allergy, Unknown, 12/25/05) Patient Home Medication List Home Medication List Reviewed: Yes Alprazolam (Xanax) 1 Mg Tablet, 1 TAB PO TID PRN, (Reported) Entered as Reported by: ERNESTINA SEARS on 04/17/11 1741 Fluoxetine HCl (Fluoxetine HCl) 20 Mg Capsule, (Reported) Entered as Reported by: TRINA REID on 04/13/222020 Losartan Potassium (Losartan Potassium) 50 Mg Tablet, (Reported) Entered as Reported by: TRINA REID on 04/13/222020 Metoprolol Tartrate (Metoprolol Tartrate) 25 Mg Tablet, (Reported) Entered as Reported by: TRINA REID on 04/13/222020 Montelukast Sodium (Montelukast Sodium) 10 Mg Tablet, (Reported) Entered as Reported by: TRINA REID on 04/13/222020 Ondansetron (Ondansetron Odt) 4 Mg Tab.rapdis, 4 MG SL Q8H PRN for NAUSEA/VOMITING Prescribed by: YOGI MONTOYA on 04/13/22 231 Pantoprazole Sodium (Pantoprazole Sodium) 40 Mg Tablet., (Reported) Entered as Reported by: TRINA REID on 04/13/222020 Review of Systems Review of Systems Constitutional: see HPI EENTM: No Symptoms Reported Respiratory: No Symptoms Reported Gastrointestinal: Diarrhea, Nausea, Vomiting Genitourinary: No Symptoms Reported Musculoskeletal: no symptoms reported Skin: no symptoms reported Psychiatric/Neurological: No Symptoms Reported All Other Systems Reviewed Negative Unless Noted: Yes Past Mubofke-Kpnxox-Voswho Hx Patient Social History Tobacco Use?: Yes Tobacco type used: Cigarettes Smoking Status: Current Everyday Smoker Use of E-Cig and/or Vaping dev: No Substance use?: No Alcohol Use?: Yes Alcohol Frequency: Rarely Immunizations Up To Date First/Initial COVID19 Vaccinat: x2 Seasonal Allergies Seasonal Allergies: Yes Past Medical History Surgery/Hospitalization HX: left shoulder, cholecystectomy, heart cath no intervention, htn, gerd, copd Surgeries: Yes (tumor removal right side 2006, stretched esophagus in 2018) Gallbladder Respiratory: Yes Asthma, COPD Cardiac: Yes High Cholesterol, Hypertension Neurological: No Genitourinary: No Gastrointestinal: Yes Gastroesophageal Reflux, Hiatal Hernia Musculoskeletal: No Endocrine: No HEENT: No Cancer: No Psychosocial: Yes Personality Disorder Integumentary: No Blood Disorders: No Physical Exam Vital Signs Vital Signs - First Documented 12/13/22 22:29 Temp 36.0 Pulse 67 Resp 18 B/P (MAP) 128/64 (85) Pulse Ox 98 O2 Delivery Room Air Capillary Refill : Less Than 3 Seconds Height/Weight/BMI Height: 5'6.00" Weight: 132lbs. oz. 59.405553ak; 28.00 BMI Method: General Appearance: WD/WN, no apparent distress HEENT: PERRL/EOMI Neck: normal inspection Respiratory: lungs clear, normal breath sounds, no respiratory distress, no accessory muscle use Cardiovascular: regular rate, rhythm Gastrointestinal: normal bowel sounds, non tender, soft Extremities: normal range of motion, non-tender, normal inspection Neurologic/Psychiatric: alert, normal mood/affect Skin: normal color, warm/dry Progress/Results/Core Measures Results/Orders Lab Results Laboratory Tests Test 12/13/22 22:34 Range/Units White Blood Count 13.0 H 4.3-11.0 10^3/uL Red Blood Count 4.50 3.80-5.11 10^6/uL Hemoglobin 13.2 11.5-16.0 g/dL Hematocrit 41 35-52 % Mean Corpuscular Volume 92 80-99 fL Mean Corpuscular Hemoglobin 29 25-34 pg Mean Corpuscular Hemoglobin Concent 32 32-36 g/dL Red Cell Distribution Width 14.0 10.0-14.5 % Platelet Count 307 130-400 10^3/uL Mean Platelet Volume 11.2 9.0-12.2 fL Immature Granulocyte % (Auto) 0 % Neutrophils (%) (Auto) 82 H 42-75 % Lymphocytes (%) (Auto) 10 L 12-44 % Monocytes (%) (Auto) 6 0-12 % Eosinophils (%) (Auto) 1 0-10 % Basophils (%) (Auto) 0 0-10 % Neutrophils # (Auto) 10.6 H 1.8-7.8 10^3/uL Lymphocytes # (Auto) 1.4 1.0-4.0 10^3/uL Monocytes # (Auto) 0.8 0.0-1.0 10^3/uL Eosinophils # (Auto) 0.1 0.0-0.3 10^3/uL Basophils # (Auto) 0.0 0.0-0.1 10^3/uL Immature Granulocyte # (Auto) 0.1 0.0-0.1 10^3/uL Sodium Level 140 135-145 MMOL/L Potassium Level 4.1 3.6-5.0 MMOL/L Chloride Level 107 98-107 MMOL/L Carbon Dioxide Level 22 21-32 MMOL/L Anion Gap 11 5-14 MMOL/L Blood Urea Nitrogen 12 7-18 MG/DL Creatinine 1.09 0.60-1.30 MG/DL Estimat Glomerular Filtration Rate 59 BUN/Creatinine Ratio 11 Glucose Level 143 H 70-105 MG/DL Calcium Level 9.0 8.5-10.1 MG/DL Corrected Calcium 8.9 8.5-10.1 MG/DL Total Bilirubin 0.4 0.1-1.0 MG/DL Aspartate Amino Transf (AST/SGOT) 17 5-34 U/L Alanine Aminotransferase (ALT/SGPT) 15 0-55 U/L Alkaline Phosphatase 97 40-136 U/L Total Protein 7.8 6.4-8.2 GM/DL Albumin 4.1 3.2-4.5 GM/DL My Orders Orders - YOGI MONTOYA MD Ed Iv/Invasive Line Start (12/13/22 22:47) Cbc And Automated Diff (12/13/22 22:47) Comprehensive Metabolic Panel (12/13/22 22:47) Ekg Tracing (12/13/22 22:47) Vital Signs/I&O 12/13/22 12/14/22 22:29 00:50 Temp 36.0 Pulse 67 70 Resp 18 18 B/P (MAP) 128/64 (85) 118/61 Pulse Ox 98 98 O2 Delivery Room Air Room Air Blood Pressure Mean: 85 Progress Progress Note : Time: 00:22 Progress Note Patient seen and evaluated by me Dayanna patterson today includes physical exam, CBC, CMP amd EKG. Pertinent physical exam findings, - WDWN female in NAD - Alert and oriented. HEENT WNL, Lungs clear - no increased work of breathing or distress. Heart is regular. Abdomen is completely soft and non tender. ddx includes food poisoning, gastroenteritis Labs and EKG independently reviewed and interpreted by me - CBC shows mild leukocytosis of 13 with 82% segs. CHem unremarkable as well - with only mildly elevated glucose at 143. EKG - NSR without ST change. PAtient was treated with a liter of NS. She felt much better after the fluids and had no further episo raymon of n/v/d. No deterioration in her condition. She believes the bleach caused her symptoms - no other etiology found this visit. Return precautions discussed. Patient verbalized understanding and was discharged to home. Initial ECG Impression Date: Dec 13, 2022 Initial ECG Impression Time: 23:10 Initial ECG Rate: 64 Initial ECG Rhythm: Normal Sinus Initial ECG Intervals: Normal Initial ECG Intervals ME 144 QRS [address] Q[address] segment change/elevation or depression; no ectopy Departure Impression Primary Impression: Gastroenteritis Disposition: 01 HOME, SELF-CARE Condition: Improved Departure-Patient Inst. Decision time for Depature: 00:22 Referrals: FARHAN QUINN DO (PCP/Family) Primary Care Physician Patient Instructions: Diarrhea, Adult ED, Nausea and Vomiting, Adult ED Add. Discharge Instructions: Follow a clear liquid diet for the next 12 hours or so. Be kind to your gut, do not eat any heavy or fatty foods. Use your nausea medications as needed/ directed. If symptoms return or worsen, or you have any other new, concerning symptoms - please return to the Emergency Department for re-evaluation. Please follow up with your primary care physician. Copy Copies To 1: FARHAN QUINN KATHRYN M MD Dec 13, 2022 22:48
[2022-12-13 22:55] LABS: BASOPHILS % (AUTO) 0 % (0-10); EOSINOPHILS # (AUTO) 0.1 10^3/uL (0.0-0.3); EOSINOPHILS % (AUTO) 1 % (0-10); HEMATOCRIT 41 % (35-52); HEMOGLOBIN 13.2 g/dL (11.5-16.0); LYMPHOCYTES # (AUTO) 1.4 10^3/uL (1.0-4.0); LYMPHOCYTES % (AUTO) 10 % (12-44); MEAN CORPUSCULAR HEMOGLOBIN 29 pg (25-34); MEAN CORPUSCULAR HGB CONC 32 g/dL (32-36); MEAN CORPUSCULAR VOLUME 92 fL (80-99); MEAN PLATELET VOLUME 11.2 fL (9.0-12.2); MONOCYTES # (AUTO) 0.8 10^3/uL (0.0-1.0); MONOCYTES % (AUTO) 6 % (0-12); NEUTROPHILS # (AUTO) 10.6 10^3/uL (1.8-7.8); NEUTROPHILS % (AUTO) 82 % (42-75); PLATELET COUNT 307 10^3/uL (130-400)
[2022-12-13 22:59] LABS: ALBUMIN 4.1 GM/DL (3.2-4.5); POTASSIUM 4.1 MMOL/L (3.6-5.0)
[2022-12-13 23:02] LABS: TOTAL PROTEIN 7.8 GM/DL (6.4-8.2)
[2022-12-13 23:04] LABS: BILIRUBIN,TOTAL 0.4 MG/DL (0.1-1.0)
[2022-12-13 23:05] LABS: CREATININE SERUM 1.09 MG/DL (0.60-1.30)
[2022-12-14 00:50] VITALS: BP 118/61
== END 2022-12-14 00:50 | disposition home or self-care (01) ==
LOC: EDUNIT# 22:29 → ER 22:31
DX: K52.9 Noninfective gastroenteritis and colitis, unspecified (principal); R73.9 Hyperglycemia, unspecified; F17.210 Nicotine dependence, cigarettes, uncomplicated; Z90.49 Acquired absence of other specified parts of digestive tract
CPT/HCPCS: 36415; 80053; 85025; 93005

== ENCOUNTER 2022-12-31 00:40 | Emergency (ER) | payer MEDICARE ==
[~2022-12-31] VITALS: Ht 161.5 cm; Wt 74.8 kg
--- NOTE | 2022-12-31 01:11 | ED General ---
General Chief Complaint: Cardiac/General Problems Stated Complaint: HIGH BP Source of Information: Patient Exam Limitations: No Limitations History of Present Illness Date Seen by Provider: Dec 31, 2022 Time Seen by Provider: 01:11 Initial Comments Patient is a 57-year-old female who presents to the emergency room with a chief complaint of concern for elevated blood pressure. She has a history of hypertension on metoprolol and losartan. She states she was not feeling good this evening, felt a little queasy, gassy and bloated. She states she felt like her blood pressure was "going up" so she took it. It was in the 160s systolic. She states she tried to "relax" and rest. She then rechecked it and it was in the 170s to 180s so she decided to drive herself into the emergency room. She denies severe headache or visual changes. No unilateral weakness, numbness or tingling. No actual chest pain. She has had a mild backache but was diagnosed with pneumonia 4 days ago, currently on doxycycline. She has a coarse wet cough. She states this is improving. She tells me she has been diagnosed with "a little emphysema". She does have a nebulizer and albuterol inhaler at home. She denies any change in renal function. She denies abdominal pain. She states she is actually starting to feel a little bit better. She does have hydroxyzine that her psychiatrist has provided her for anxiety/panic but did not take it this evening. Timing/Duration: 1-3 Hours Severity: Moderate Associated Systoms: Cough Allergies and Home Medications Allergies Coded Allergies: diphenhydramine HCl (Verified Allergy, Intermediate, LIPS TURN BLUE, 04/17/11) varenicline tartrate (Verified Allergy, Mild, HIVES, 04/17/11) codeine (Verified Allergy, Unknown, 12/25/05) etodolac (Verified Allergy, Unknown, 12/25/05) ciprofloxacin (Verified Adverse Reaction, Unknown, 08/28/19) diphenhydramine (Verified Adverse Reaction, Unknown, 08/28/19) Uncoded Allergies: SYNTHETIC CODEINE (Allergy, Mild, RASH, 04/17/11) "ANTIHISTAMINE" (Allergy, Unknown, 12/25/05) Patient Home Medication List Home Medication List Reviewed: Yes Alprazolam (Xanax) 1 Mg Tablet, 1 TAB PO TID PRN, (Reported) Entered as Reported by: ERNESTINA SEARS on 04/17/11 1741 Fluoxetine HCl (Fluoxetine HCl) 20 Mg Capsule, (Reported) Entered as Reported by: TRINA REID on 04/13/222020 Losartan Potassium (Losartan Potassium) 50 Mg Tablet, (Reported) Entered as Reported by: TRINA REID on 04/13/222020 Metoprolol Tartrate (Metoprolol Tartrate) 25 Mg Tablet, (Reported) Entered as Reported by: TRINA REID on 04/13/222020 Montelukast Sodium (Montelukast Sodium) 10 Mg Tablet, (Reported) Entered as Reported by: TRINA REID on 04/13/222020 Ondansetron (Ondansetron Odt) 4 Mg Tab.rapdis, 4 MG SL Q8H PRN for NAUSEA/VOMITING Prescribed by: YOGI MONTOYA on 04/13/222314 Pantoprazole Sodium (Pantoprazole Sodium) 40 Mg Tablet., (Reported) Entered as Reported by: TRINA REID on 04/13/222020 Review of Systems Review of Systems Constitutional: see HPI EENTM: no symptoms reported Respiratory: cough Cardiovascular: no symptoms reported Gastrointestinal: no symptoms reported Genitourinary: no symptoms reported Musculoskeletal: back pain Skin: no symptoms reported Psychiatric/Neurological: Anxiety Past [id number]-[id number] Hx Immunizations Up To Date First/Initial COVID19 Vaccinat: x2 Seasonal Allergies Seasonal Allergies: Yes Past Medical History Surgery/Hospitalization HX: left shoulder, cholecystectomy, heart cath no intervention, htn, gerd, copd Surgeries: Yes (tumor removal right side 2005, stretched esophagus in 2018) Gallbladder Respiratory: Yes Asthma, COPD Cardiac: Yes High Cholesterol, Hypertension Neurological: No Genitourinary: No Gastrointestinal: Yes Gastroesophageal Reflux, Hiatal Hernia Musculoskeletal: No Endocrine: No HEENT: No Cancer: No Psychosocial: Yes Personality Disorder Integumentary: No Blood Disorders: No Physical Exam Vital Signs Vital Signs - First Documented 12/31/22 00:55 Temp 37.0 Pulse 71 Resp 20 B/P (MAP) 170/85 (113) O2 Delivery Room Air Capillary Refill : Height, Weight, BMI Height: 5'6.00" Weight: 132lbs. oz. [id number]; 28.00 BMI Method: General Appearance: No Apparent Distress, WD/WN Eyes: Bilateral Eye Normal Inspection, Bilateral Eye PERRL, Bilateral Eye EOMI HEENT: PERRL/EOMI Neck: Normal Inspection Respiratory: No Accessory Muscle Use, No Respiratory Distress, Other (O ccasional crackles, bilateral bases no wheezes) Cardiovascular: Regular Rate, Rhythm, Normal Peripheral Pulses Extremity: Normal Inspection, Normal Range of Motion, No Pedal Edema Neurologic/Psychiatric: Alert, Oriented x3, No Motor/Sensory Deficits, Normal Mood/Affect, Other (Pleasant, good eye contact, calm and cooperative) Skin: Normal Color, Warm/Dry Progress/Results/Core Measures Suspected Sepsis SIRS Temperature: Pulse: Respiratory Rate: Blood Pressure / Mean: Results/Orders Vital Signs/I&O 12/31/22 00:55 Temp 37.0 Pulse 71 Resp 20 B/P (MAP) 170/85 (113) O2 Delivery Room Air Capillary Refill : Progress Note : Time: 01:26 Progress Note Patient seen and evaluated by me, evaluation today includes history and physical exam. Pertinent physical exam findings well-developed well-nourished female, no acute distress. Slightly hypertensive in the 170s over 90s blood pressure. She has occasional crackles bilateral bases. No increased work of breathing or respiratory distress is noted. She has regular heart rate. She appears adequately hydrated. She has no lower extremity swelling or calf tenderness. No focal neurologic deficits appreciated. Differential diagnosis includes hypertensive urgency versus emergency. Patient states that she did realize that she had been decorating her apartment for [employer], she did a lot of activity and thinks that may be what brought on her symptoms. She states she is compliant with her daily medications. She adamantly denies any chest pain, abdominal pain, headache, vision changes. Reassurance is provided. She produced her hydroxyzine tablets from her purse and asked if she could take 1, I of course told her that she could. I did consider labs, EKG and imaging however as the patient is really asymptomatic of her elevated blood pressure I do not feel like this is warranted at this time. I think this is more of a product of her anxiety rather than any type of hypertensive emergency. She actually declines any further work-up, she would like to go home. Reassurance is provided and return precautions given in both verbal and written format. All questions are sought and answered. Patient is stable for discharge. Departure Impression Primary Impression: Elevated blood pressure reading with diagnosis of hypertension Additional Impression: Anxiety about blushing Disposition: 01 HOME, SELF-CARE Condition: Improved Departure-Patient Inst. Decision time for Depature: 01:26 Referrals: FARHAN QUINN DO (PCP/Family) Primary Care Physician Patient Instructions: High Blood Pressure ED Add. Discharge Instructions: When you get home you can take one of your hydroxyzine tablets, this will help with the little bit of anxiety you have and also help bring down your blood pressure. Please continue your daily medications as prescribed. I would strongly encourage you to consider quitting smoking. Finish your antibiotics. If you have any new, concerning or emergent complaints, please return to the emergency department for reevaluation. Copy Copies To 1: FARHAN QUINN KATHRYN M MD Dec 31, 2022 01:11
[2022-12-31 01:32] VITALS: BP 158/82
== END 2022-12-31 01:33 | disposition home or self-care (01) ==
LOC: ER 00:40 → EDUNIT# 00:40 → ER 01:33
DX: I10 Essential (primary) hypertension (principal); F41.9 Anxiety disorder, unspecified; Z79.899 Other long term (current) drug therapy
CPT/HCPCS: 99281